=== PATIENT | female | born 1960 | race African-American/Black ===

== ENCOUNTER 2018-10-30 08:47 | Day surgery (SDC) | payer OTHER ==
[2018-10-29 11:33] VITALS: BMI 37.1
[2018-10-30] MEDS ORDERED: Lidocaine 4% Topical Sol 50 ML BOT ONE (10:45)
[2018-10-30] MEDS ORDERED: Midazolam HCl 2 mg/2 ml Vial ONE (11:58)
[2018-10-30] MEDS ORDERED: Fentanyl 100 MCG/2 ML VIAL ONE ×4 (11:58→15:06)
[2018-10-30] MEDS ORDERED: Lidocaine 1% w/Epinephrine 1:100K 20 ML VIAL ONE (12:10)
[2018-10-30] MEDS ORDERED: Hydrocodone-Acetamin 15 ML UDCUP ONE (15:41)
--- NOTE | 2018-10-30 17:09 | EKG ---
Test Reason : PREOP Blood Pressure : / mmHG Vent. Rate : 047 BPM Atrial Rate : 047 BPM P-R Int : 144 ms QRS Dur : 088 ms QT Int : 466 ms P-R-T Axes : 039 014 020 degrees QTc Int : 412 ms Marked sinus bradycardia Abnormal ECG No previous ECGs available Confirmed by ROBERTO TOMLINSON, DR. Olvera ([id number]) on 10/30/2018 5:09:22 PM Referred By: SHARI Confirmed By:DR. May MEJIA MD
[2018-10-30] MEDS ORDERED: Ondansetron PF 4 MG/2 ML Vial ONE (17:29)
[2018-10-30] MEDS ORDERED: Dexamethasone 20 MG/5 ML VIAL ONE (17:29)
[2018-10-30] MEDS ORDERED: ePHEDrine 50 MG/ML VIAL ONE (17:29)
[2018-10-30] MEDS ORDERED: Lidocaine 1% PF 5 ML VIAL ONE (17:29)
[2018-10-30] MEDS ORDERED: PROPOFOL 200 MG/20 ML VIAL ONE (17:29)
[2018-10-30] MEDS ORDERED: Succinylcholine Chloride 20 MG/ML 10 ml SYRINGE FS ONE (17:29)
--- NOTE | 2018-10-30 17:45 | OP ---
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 PROCEDURE PERFORMED: Right superficial parotidectomy with facial nerve dissection. PROCEDURE IN DETAIL: After consent was obtained, the patient was identified, brought to the OR, and placed on the operating room table in supine position. General endotracheal anesthesia was obtained. The patient was positioned for surgery. The area of intended incision was delineated with a marking pen. The patient was prepped and draped and injected with 1% lidocaine with 1:100,000 epinephrine. We made it through skin and subcutaneous tissue in the natural skin crease two fingerbreadths below the angle of mandible and in the preauricular area. We then carried the incision down through skin and subcutaneous tissues through the level of the SMAS. We then created a facial flap at the level of the parotid fascia and extended the neck over this mass. We then identified the anterior aspect of the sternocleidomastoid, dissected along the external canal cartilage. Ultimately, the posterior belly of the digastric muscle was identified as was the transverse facial nerve. The mass was predominantly in the tail region and so, the inferior branch of the facial nerve was dissected as the parotid was reflected forward. We then identified the mass, isolated meticulously, dissected it from the surrounding tissue with care not to injure the facial nerve, sent for permanent histologic evaluation. Hemostasis was then obtained. The wound was closed. The parotid was reapproximated to the anterior aspect of the sternocleidomastoid and the wound was closed in layers with absorbable suture. Sterile dressing was applied. Job ID: [id number]
== END 2018-10-30 16:36 | disposition home or self-care (01) ==
LOC: SDC 08:47
PROVIDERS: ATTEND Specialist
PROC: 0CBB0ZZ Excision of Right Parotid Duct, Open Approach (ICD-10-PCS; principal; 2018-10-30)
DX: D11.0 Benign neoplasm of parotid gland (principal); I10 Essential (primary) hypertension; Z87.891 Personal history of nicotine dependence; Z79.899 Other long term (current) drug therapy; Z88.2 Allergy status to sulfonamides; Z88.5 Allergy status to narcotic agent; Z88.8 Allergy status to other drugs, medicaments and biological substances
CPT/HCPCS: 36415; 85014; 85018; 88307; 93005; 93010; J1100; J2001; J2250; J2405; J2704; J3010; J3490